=== PATIENT | female | born 1990 | race Caucasian/White ===

== ENCOUNTER 2016-07-09 09:35 | Outpatient (CLI) | payer OTHER ==
--- NOTE | 2016-07-09 10:22 | DIAGNOSTIC IMAGING REPORT ---
PROCEDURE: XR LUMBAR SPINE 2 OR 3 VIEWS INDICATION: LUMBAR STRAIN SUBSEQUENT ENCOUNTER TECHNIQUE: Three views. COMPARISON: None. FINDINGS: Osseous structures and disc spaces are normal. No evidence of an acute process or fracture. IMPRESSION: 1. Negative lumbar spine.
== END 2016-07-09 23:00 ==
LOC: XR SRH 09:35
DX: S39.012D Strain of muscle, fascia and tendon of lower back, subsequent encounter (principal)